=== PATIENT | male | born 1940 | race Caucasian/White ===

== ENCOUNTER 2017-07-21 09:27 | Emergency (ER) | payer OTHER ==
[~2017-07-21] VITALS: Ht 165.1 cm; Wt 74.8 kg
[~2017-07-21 09:27] MED LIST: FINASTERIDE5 M1 PO; FLOMAX0.4 M1 PO; PERCOCET 5-3251 EACH PO; SIMVASTATIN20 M2 PO; SYNTHROID100 MCG PO
--- NOTE | 2017-07-21 10:42 | RADIOLOGY REPORT ---
EXAMINATION: XR SHOULDER, LEFT XR HUMERUS, LEFT CLINICAL INFORMATION: Fracture. Pain. COMPARISON: None TECHNIQUE: Three views of the left shoulder and AP and lateral views of the left humerus. FINDINGS: Left shoulder: Minimal acromioclavicular osteoarthritis. Glenohumeral joint appears well-preserved. There is a spiral fracture of the proximal humeral diaphysis with anteromedial displacement of the distal fragment by one half shaft width on these images. There is a nondisplaced component of the fracture line which ascends to the level of the humeral neck. Soft tissues are swollen. Imaged portion of the left hemithorax is unremarkable. Left humerus: As above, there is a spiral fracture of the left proximal humeral shaft centered at the junction of the middle and distal thirds with anteromedial displacement of the distal fracture fragment by one half shaft width. No angulation is present on these images. Surrounding soft tissues are swollen. Assessment of the above, a nondisplaced fracture line extends cephalad to the level of the humeral neck in the region of the posterolateral cortex. IMPRESSION: 1. Spiral fracture of the proximal to mid humeral shaft with anteromedial displacement of the distal fragment. 2. Minimal acromioclavicular osteoarthritis.
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
--- NOTE | 2017-07-21 13:12 | RADIOLOGY REPORT ---
EXAMINATION: XR HUMERUS, LEFT CLINICAL INFORMATION: Post reduction. Left humerus fracture. COMPARISON: Same day left humerus radiograph. TECHNIQUE: AP and lateral views of the left humerus. FINDINGS: Again identified is an oblique left humeral shaft fracture. There is improvement in previously identified medial displacement with increasing medial angulation. The humeral head is seated within a well-formed glenoid. IMPRESSION: Improved medial displacement of distal humeral fracture fragment with increased medial angulation.
[2017-07-21 15:11] VITALS: BP 118/70
[2017-07-21] MEDS ORDERED: PERCOCET 5-3251 EACH PO (15:11)
--- NOTE | 2017-07-21 15:20 | Cons- Orthopedic ---
General Information and HPI Consulting Request Date of Consult: 07/21/17 Requested By: Dr Banda, ED attending Reason for Consult: L humerus fracture Source of Information: patient Exam Limitations: no limitations History of Present Illness: This is a 77-year-old gentleman who tripped, losing his balance while taking off his pajamas this morning and fell into the side of furniture striking his left upper arm causing a left humeral fracture and deformity. He was brought to the ER for evaluation. X-rays show a significantly displaced spiral humeral fracture as well as a more proximal segmented fracture fragment that nondisplaced. Orthopedics was consulted for evaluation and management of the fracture. Patient states that he has no weakness or numbness in the hand or loss of function. His pain is moderate and controlled with Tylenol Allergies/Medications Allergies: Coded Allergies: Penicillins (ITCHING 10/23/15) dog dander (UNKNOWN 10/23/15) mold (UNKNOWN 10/23/15) Home Med List: Finasteride 5 MG TABLET 1 TAB PO 8AM WATER RETENTION Levothyroxine Sodium (Synthroid) 100 MCG TABLET 1 TAB PO DAILY AC THYROID ( Reported) Oxycodone HCl/Acetaminophen (Percocet 5-325 MG Tablet) 5 MG-325 MG TABLET 1 TAB PO Q6P PRN pain Simvastatin (Simvastatin*) 20 MG TABLET 1 TAB PO QPM CHOLESTROL (Reported) Tamsulosin HCl (Flomax) 0.4 MG CAP.ER.24H 1 TAB PO DAILY WATER RETENTION Past History Medical History Neurological: NONE EENT: NONE Cardiovascular: hyperlipidemia Respiratory: NONE Gastrointestinal: NONE Hepatic: NONE Renal: NONE Musculoskeletal: NONE Psychiatric: NONE Endocrine: hypothyroidism Blood Disorders: NONE Cancer(s): NONE [employer] [facility]/Reproductive: NONE Surgical History Pertinent Surgical History: TONSILECTOMY Psychosocial History Services at Home: None ETOH Use: occasional use Illicit Drug Use: denies illicit drug use Functional Ability ADLs Independent: dressing, eating, toileting, bathing. Review of Systems Review of Systems: Review of systems: See HPI, all other systems negative. Constitutional: No chills fever or weight loss HEENT: No visual changes no sore throat no congestion Cardiovascular: No chest pain ,palpitation , orthopnea or ankle swelling Skin: No jaundice no rashes Respiratory: No dyspnea cough sputum or hemoptysis GI: No nausea no vomiting : No dysuria no hematuria Musclulo skeletal: See HPI Neurologic: No numbness no confusion Psych: No stress anxiety or depression,. Heme/endocrine: No bruising no bleeding no polyuria or polydipsia Immunology: No splenectomy or history of AIDS Exam & Diagnostic Data Vital Signs and I&O Intake & Output 07/22 1600 07/22 0800 07/22 0000 07/21 1600 07/21 0800 07/21 0000 Intake Total Output Total Balance Patient 165 lb Weight Weight Reported by Patient Measurement Method Vital signs stable, afebrile Physical Exam: Well-developed well-nourished no apparent distress. HEENT: Atraumatic, extraocular motion intact Neck: Supple, no lymphadenopathy Respiratory: No respiratory distress Extremities: Left upper extremity, obvious deformed midshaft and proximal humeral fracture. Significant swelling noted. No skin tenting, skin is intact. No shoulder or elbow tenderness. The hand is neurovascularly intact with sensation and motor grossly intact, no weakness with thumb extension or wrist extension, no first webspace numbness dorsally. Neuro: Alert and oriented x3 Psych: Mood affect normal, normal memory normal judgment. Skin: Warm and dry, no rash on exposed skin Imaging Results: PATIENT: BIBI NICHOLS PRESENT AGE: 77 PATIENT ACCOUNT NO: [id number] : 38 LOCATION: [facility] ORDERING PHYSICIAN: Russell Banda DO SERVICE DATE: 07/21/17 EXAM TYPE: RAD - XRY-HUMERUS, LEFT; XRY-SHOULDER COMPLETE-LEFT EXAMINATION: XR SHOULDER, LEFT XR HUMERUS, LEFT CLINICAL INFORMATION: Fracture. Pain. COMPARISON: None TECHNIQUE: Three views of the left shoulder and AP and lateral views of the left humerus. FINDINGS: Left shoulder: Minimal acromioclavicular osteoarthritis. Glenohumeral joint appears well-preserved. There is a spiral fracture of the proximal humeral diaphysis with anteromedial displacement of the distal fragment by one half shaft width on these images. There is a nondisplaced component of the fracture line which ascends to the level of the humeral neck. Soft tissues are swollen. Imaged portion of the left hemithorax is unremarkable. Left humerus: As above, there is a spiral fracture of the left proximal humeral shaft centered at the junction of the middle and distal thirds with anteromedial displacement of the distal fracture fragment by one half shaft width. No angulation is present on these images. Surrounding soft tissues are swollen. Assessment of the above, a nondisplaced fracture line extends cephalad to the level of the humeral neck in the region of the posterolateral cortex. IMPRESSION: 1. Spiral fracture of the proximal to mid humeral shaft with anteromedial displacement of the distal fragment. 2. Minimal acromioclavicular osteoarthritis. DICTATED BY: Aroldo Loyola MD DATE/TIME DICTATED:07/21/171034 TIRE BUILDER:CIRILO DATE/TIME TRANSCRIBED:07/21/171034 CONFIDENTIAL, DO NOT COPY WITHOUT APPROPRIATE AUTHORIZATION. Assessment/Plan Assessment/Plan 77-year-old male with a significantly displaced mid to proximal humeral spiral fracture. Case discussed with Dr. Arredondo. The fracture was reduced to a more acceptable position and a well-padded well molded coaptation splint was applied to the left upper extremity with improved alignment. Postprocedural x-ray confirms this. Patient remained neurovascularly intact distally throughout his procedure. He did have some mild vasovagal reaction during application of splint which quickly passed and he did not suffer loss of consciousness. The plan would be for nonoperative treatment and this will be further discussed in the office in the next few days with Dr. Arredondo. Patient was given contact information and agrees to follow-up within the next few days. Discussed with Dr. Solo SILVERIO attending Problem List: 1. Humeral fracture Consult Acknowledgment - Thank you for your consult request.
== END 2017-07-21 15:11 ==
LOC: ERH 09:27
DX: S42.342A Displaced spiral fracture of shaft of humerus, left arm, initial encounter for closed fracture (principal); W19.XXXA Unspecified fall, initial encounter; Y92.019 Unspecified place in single-family (private) house as the place of occurrence of the external cause; Y93.E8 Activity, other personal hygiene
CPT/HCPCS: 73030-LT; 73060-LT